=== PATIENT | male | born 1960 | race Caucasian/White ===

== ENCOUNTER 2016-07-06 12:20 | Emergency (ER) | payer BC ==
[2016-07-06 13:58] VITALS: BP 144/87
--- NOTE | 2016-07-06 15:56 | UC ---
Cardiac HPI - HPI Summary HPI Summary: This is a 56 yo gentleman with h/o paroxysmal afib who presents with c/o L arm pain. Patient has had intermittent sharp L shoulder/arm pit/chest pain lasting no more than a few seconds. No assoc dyspnea or palpitations. His pain was induced with palpation this am, but that is atypical. He reports he generally has c/o SOb with his afib, but otherwise asx. Followed by Dr Newman. Stress testing from 09/2015 was neg for ischemic changes on echo or EKG. He has been complaint with meds. He denies changes in exercise tolerance or exercise induced symptoms. - History of Current Complaint Chief Complaint: UCUpperExtremity Stated Complaint: ARM PAIN COMPLAINT - Allergy/Home Medications Allergies/Adverse Reactions: Allergies Allergy/AdvReac Type Severity Reaction Status Date / Time No Known Allergies Allergy Verified 03/26/14 20:13 Home Medications: Home Medications Aspirin [Aspirin Childrens] 81 mg PO 07/06/16 [History] Propafenone HCl 150 mg PO 07/06/16 [History] PMH/Surg Hx/FS Hx/Imm Hx Endocrine History Of: Denies: Diabetes Cardiovascular History Of: Reports: Cardiac Disorders - mitro valve prolapse Denies: Hypertension, Pacemaker/ICD, Myocardial Infarction Respiratory History Of: Denies: COPD, Asthma - Surgical History Surgical History: Yes Surgery Procedure, Year, and Place: 2010 right cataract extraction with iol implant, [facility]. VASECTOMY, OFFICE, left cataract - Family History Family History: Neg for CVD - Social History Alcohol Use: None Substance Use Type: None Smoking Status (MU): Heavy Every Day Tobacco Smoker Type: Cigarettes Amount Used/How Often: 1/2 PPD Review of Systems Constitutional: Negative Skin: Negative Eyes: Negative ENT: Negative Respiratory: Negative Cardiovascular: Chest Pain Gastrointestinal: Negative Genitourinary: Negative Motor: Negative Neurovascular: Negative Musculoskeletal: Negative Neurological: Negative Psychological: Anxious All Other Systems Reviewed And Are Negative: Yes Physical Exam Triage Information Reviewed: Yes Appearance: Well-Appearing Vital Signs: Initial Vital Signs Temp 98.5 F 07/06/16 13:51 Pulse 55 07/06/16 13:51 Resp 18 07/06/16 13:51 BP 144/87 07/06/16 13:51 Pulse Ox 98 07/06/16 13:51 Vital Signs Reviewed: Yes Respiratory: Positive: Chest non-tender, Lungs clear, Normal breath sounds. Negative: Crackles, Rhonchi, Wheezing Cardiovascular: Positive: RRR, No Murmur Abdomen Description: Positive: Nontender Neurological: Positive: Alert, Muscle Tone Normal Psychological Exam: Normal Diagnostics - Laboratory Diagnostic Studies Completed/Ordered: EKG - NSR. CXR - NAD Re-Evaluation - Re-Evaluation First Eval Re-Evaluation Time: 16:00 Change: Unchanged Comment: Patient remained CP free. Discussed nl CXR - Assessment/Plan Course Of Treatment: Patient has a benign exam and is asymptomatic during evaluation. Explained to patient that his symptoms are concerning for a possible cardiac etiology. Attempted to contact his air marshal, Dr Newman, but she is out of the office until next week. Recommended to the patient that he be transferred to the ER for further evaluation. Patient does not feel that is necessary and believes it is anxiety induced. He elects to leave AMA. Patient is agreeable to seek care in the ER if his pain returns and is persistent or he has any other escalation in symptoms. - Differential Diagnoses - Chest Pain Differential Diagnosis/HQI/PQRI: Acute OR, ACS, Chest Wall, Pulmonary Embolism - Differential Diagnoses - Palpitations Differential Diagnosis/HQI/PQRI: Paroxymal SVT, Other - paroxysmal afib - Clinical Impression Provider Diagnoses: Chest pain - patient is leaving AMA from urgent care Discharge - Discharge Plan Condition: Stable Disposition: HOME
--- NOTE | 2016-07-06 16:15 | RAD ---
INDICATION: LEFT axillary pain. Palpitations. History of tobacco use. COMPARISON: August 23, 2010 TECHNIQUE: Dual energy PA and routine lateral views of the chest were obtained. REPORT: Elevated lung volumes. No alveolar consolidation, focal pulmonary lesion, pleural effusion, pneumothorax. The heart, pulmonary vasculature, and mediastinal contours are unremarkable. Unremarkable soft tissue contours and osseous structures. IMPRESSION: Elevated lung volumes suggest potential chronic obstructive pulmonary disease. Negative for pneumothorax. No acute cardiopulmonary process evident.
== END 2016-07-06 16:18 | disposition home or self-care (01) ==
LOC: UCEAST 12:20
DX: R07.89 Other chest pain (principal); I48.0 Paroxysmal atrial fibrillation; Z79.82 Long term (current) use of aspirin; F17.210 Nicotine dependence, cigarettes, uncomplicated
CPT/HCPCS: 71020; 93005; 99212; G0463